=== PATIENT | female | born 1975 | race Caucasian/White ===

== ENCOUNTER → 2017-10-05 | Outpatient (CLI) | payer BC ==
[2017-10-07 02:55] LABS: Avocado Class CLASS 0; Banana IgE Class CLASS 0; Beef IgE <0.35 kU/L (<0.35); Beef IgE Class CLASS 0; Celery IgE <0.35 kU/L (<0.35); Celery IgE Class CLASS 0; Chicken IgE Class CLASS 0; Chocolate IgE Class CLASS 0; Coffee IgE <0.35 kU/L (<0.35); Coffee IgE Class CLASS 0; Cow's Milk IgE Class CLASS 0; Crab IgE <0.35 kU/L (<0.35); Crab IgE Class CLASS 0; Egg White IgE <0.35 kU/L (<0.35); Egg Yolk IgE Class CLASS 0; Gluten IgE Class CLASS 0; Green Bean IgE <0.35 kU/L (<0.35); Green Bean IgE Class CLASS 0; Hazelnut IgE <0.35 kU/L (<0.35); Hazelnut IgE Class CLASS 0; Kiwi IgE <0.35 kU/L (<0.35); Kiwi IgE Class CLASS 0; Lettuce IgE Class CLASS 0; Lobster IgE <0.35 kU/L (<0.35); Lobster IgE Class CLASS 0; Oat IgE Class CLASS 0; Onion IgE <0.35 kU/L (<0.35); Onion IgE Class CLASS 0; Peanut IgE <0.35 kU/L (<0.35); Pork IgE Class CLASS 0; Potato IgE <0.35 kU/L (<0.35); Potato IgE Class CLASS 0; Salmon IgE <0.35 kU/L (<0.35); Salmon IgE Class CLASS 0; Soybean IgE <0.35 kU/L (<0.35); Tea IgE <0.35 kU/L (<0.35); Tea IgE Class CLASS 0; Tuna IgE <0.35 kU/L (<0.35); Tuna IgE Class CLASS 0; Yeast Bakers/Brew IgE <0.35 kU/L (<0.35); Yeast Bakers/Brew IgE Class CLASS 0
[2017-10-08 13:31] LABS: Chocolate IgG 5.6 mcg/mL (< 2.0); Crab IgG 7.7 mcg/mL (< 2.0)
[2017-10-08 13:32] LABS: Beef IgG 8.2 mcg/mL (< 2.0); Pork IgG 5.6 mcg/mL (< 2.0); Walnut IgG 4.8 mcg/mL (< 2.0)
[2017-10-08 13:33] LABS: Chicken Meat IgG 5.3 mcg/mL (< 2.0); Coffee IgG 4.9 mcg/mL (< 2.0); Orange IgG 3.7 mcg/mL (< 2.0)
[2017-10-08 13:34] LABS: Corn IgG 5.3 mcg/mL (< 2.0); Cow's Milk IgG 50.9 mcg/mL (< 2.0); Oat IgG 7.3 mcg/mL (< 2.0); Peanut IgG 4.7 mcg/mL (< 2.0); Potato IgG 4.7 mcg/mL (< 2.0); Rice IgG 7.6 mcg/mL (< 2.0); Tomato IgG 6.7 mcg/mL (< 2.0); Wheat IgG 5.6 mcg/mL (< 2.0)
[2017-10-11 14:35] LABS: Mis test requested (Blood) Strawberry IgG
[2017-10-11 14:38] LABS: Mis test requested (Blood) Lobster IgG
[2017-10-12 10:10] LABS: Tea IgG <2.0 mcg/mL (<2.0)
[2017-10-23 15:52] LABS: Mis test requested (Blood) Onion IgG
== END | disposition home or self-care (01) ==
LOC: LABWHC1 14:25
PROVIDERS: ATTEND Otolaryngology
DX: J30.89 Other allergic rhinitis (principal)
CPT/HCPCS: 36415; 86001; 86003